=== PATIENT | male | born 2000 | race Caucasian/White ===

== ENCOUNTER 2019-06-04 14:49 | Emergency (ER) | payer BC ==
[~2019-06-04] VITALS: Ht 175.2 cm; Wt 72.6 kg
[~2019-06-04 14:49] MED LIST: AUGMENTIN 400 M1 CTB PO; CLARITIN5 MG/5 ML PO; MOTRIN400 MG PO; PRELONE5 MG/5 ML PO; ZITHROMAX200 MG/5 M PO; ZOFRAN4 MG PO
[2019-06-04 17:56] LABS: BASO % 0.3 % (0.0-1.0); EOS % 0.3 % (1.0-4.0); HEMATOCRIT 45.2 % (42.0-52.0); LYMPH # 1.1 10*3/uL (1.3-4.4); LYMPH % 15.6 % (27.0-41.0); MEAN CELL VOLUME 93.6 fl (80.0-94.0); MEAN CORPUSCULAR HGB 31.1 pg (27.0-31.0); MEAN CORPUSCULAR HGB CONC 33.2 g/dl (33.0-37.0); MEAN PLATELET VOLUME 10.4 fl (9.6-12.3); MONO # 1.1 10*3/uL (0.1-1.0); MONO % 15.8 % (3.0-9.0); NEUT # 4.6 10*3/uL (2.3-7.9); NEUT % 67.9 % (47.0-73.0); PLATELET COUNT AUTOMATED 260 10*3/uL (130-400); RED BLOOD COUNT 4.83 10*6/uL (4.50-5.90); RED CELL DISTRI WIDTH 11.9 % (0-14.5); WHITE BLOOD COUNT 6.7 10*3/uL (4.8-10.8)
[2019-06-04 18:16] LABS: ALBUMIN 4.6 gm/dl (3.1-4.5); ALKALINE PHOSPHATASE 84 U/L (45-117); BUN 9 mg/dl (7-24); CHLORIDE 104 mmol/L (98-107); CREATININE 1.09 mg/dL (0.70-1.30); POTASSIUM 4.2 mmol/L (3.5-5.1); SGOT/AST 14 IU/L (3-35); SGPT/ALT 24 U/L (12-78); SODIUM 139 mmol/L (136-145); TOTAL PROTEIN 8.1 gm/dL (6.4-8.2)
== END 2019-06-04 19:05 | disposition home or self-care (01) ==
LOC: ED 14:49
PROVIDERS: Physician Assistant
DX: R05 Cough (principal); R50.9 Fever, unspecified; R52 Pain, unspecified

== ENCOUNTER → 2021-05-19 | Outpatient (CLI) | payer BC ==
[~2021-05-19] VITALS: Ht 177.8 cm; Wt 77.1 kg
[~2021-05-19] MED LIST changes: +OMEPRAZOLE20 M2 PO; +PRISTIQ50 MG PO
== END ==
LOC: COVID19 02:36 → SDC 09:30 → EDSTATUS 05-23 09:30 → SDC 05-23 09:30
PROVIDERS: ATTEND Surgery
DX: R11.2 Nausea with vomiting, unspecified (principal); F32.9 Major depressive disorder, single episode, unspecified; F41.9 Anxiety disorder, unspecified; K21.9 Gastro-esophageal reflux disease without esophagitis; Z20.822 Contact with and (suspected) exposure to COVID-19; Z53.8 Procedure and treatment not carried out for other reasons

== ENCOUNTER → 2021-07-25 | Day surgery (SDC) | payer BC ==
[~2021-07-25] VITALS: Ht 177.8 cm; Wt 77.1 kg
[~2021-07-25] MED LIST changes: +FLUCONAZOLE100 MG PO
[2021-07-25 09:16] VITALS: BP 120/67
[2021-07-25 09:31] VITALS: BP 117/70
[2021-07-25 09:46] VITALS: BP 122/66
== END | disposition home or self-care (01) ==
LOC: SDC 05-19 09:30 → EDSTATUS 07-21 12:30 → SDC 07-21 12:30
PROVIDERS: ATTEND Surgery
DX: R10.13 Epigastric pain (principal); R11.2 Nausea with vomiting, unspecified; K29.50 Unspecified chronic gastritis without bleeding; K21.9 Gastro-esophageal reflux disease without esophagitis; F41.9 Anxiety disorder, unspecified; F32.9 Major depressive disorder, single episode, unspecified; Z79.899 Other long term (current) drug therapy; Z20.822 Contact with and (suspected) exposure to COVID-19